=== PATIENT | male | born 1985 | race African-American/Black ===

== ENCOUNTER 2017-09-03 19:34 | Emergency (ER) | payer OTHER ==
[2017-09-03] MEDS ORDERED: LORAZEPAM 2 MG/ML 1 ML VIAL IM STA ×2 (19:57→20:22)
[2017-09-03] MEDS ORDERED: HALOPERIDOL LACTATE 5 MG/ML 1 ML VIAL IM STA (19:57)
[2017-09-03] MEDS ORDERED: HALOPERIDOL LACTATE 5 MG/ML 1 ML VIAL IV STA (20:22)
[2017-09-03 20:43] LABS: BASO % 0.5 %; BASO ABS # 0.05 K/uL (0-0.2); EOS % 4.6 %; EOS ABS # 0.45 K/uL (0-0.5); HEMOGLOBIN 14.3 g/dL (14.0-18.0); IG# 0.02 K/uL (0.00-0.02); LYMPH % 36.9 %; MEAN CELL VOLUME 88.8 fL (80-100); MEAN CORPUSCULAR HEMOGLOBIN 30.2 pg (25-34); MEAN PLATELET VOLUME 9.5 fL (7.4-10.4); MONO ABS # 0.88 K/uL (0.11-0.59); NEUT % 48.8 %; NEUT ABS # 4.76 K/uL (1.4-6.5); PLATELET COUNT 215 K/uL (130-400); RED CELL DISTRIBUTION WIDTH CV 12.3 % (11.5-14.5); RED CELL DISTRIBUTION WIDTH SD 39.4 fL (36.4-46.3); WHITE BLOOD COUNT 9.76 K/uL (4.8-10.8)
[2017-09-03 21:08] LABS: ALKALINE PHOSPHATASE 141 U/L (45-117); ALT/SGPT 32 U/L (12-78); AST/SGOT 18 U/L (15-37); BLOOD UREA NITROGEN 12 mg/dl (7-18); CALCIUM 8.5 mg/dl (8.5-10.1); CARBON DIOXIDE 24 mmol/L (21-32); CREATININE 1.08 mg/dl (0.60-1.40); GLUCOSE 115 mg/dl (70-99); POTASSIUM 3.7 mmol/L (3.5-5.1); SODIUM 133 mmol/L (136-145); TOTAL PROTEIN 7.6 gm/dl (6.4-8.2)
--- NOTE | 2017-09-03 21:23 | EMERGENCY ROOM VISIT NOTE ---
History Report prepared by Hillary: Tammy Chau Under the Supervision of: Dr. Juan Renteria M.D. First contact with patient: 19:47 Chief Complaint: MENTAL HEALTH EVALUATION Stated Complaint: MHID History of Present Illness The patient is a 32 year old male who presents to the Emergency Room with complaints of worsening agitation starting today. The patient's sister called the police over concerns of the patient's well-being. The patient reportedly has a history of schizophrenia and bipolar disorder. He has not been taking his medications. The patient reports that he is doing well. He is not having any pain. He is unsure why his sister brought him to the ED. He denies having any medical problems. He denies being on any medications. He reports he has been eating and drinking well. Source of History: patient, sibling Onset: today Position: other (mental health) Quality: other (agitation) Timing: worsening Note: Patient denies having any pain. Review of Systems See HPI for pertinent positives and negatives. A total of ten systems were reviewed and were otherwise negative. Past Medical & Surgical History of schizophrenia and bipolar disorder Family History No pertinent family history stated Social History Housing Status: lives with family Current/Historical Medications Unable to Obtain Active Prescriptions or Reported Meds Allergies Coded Allergies: No Known Allergies (Unverified , 09/03/17) Physical Exam Vital Signs Date Time Temp Pulse Resp B/P (MAP) Pulse Ox O2 Delivery O2 Flow Rate FiO2 09/03/17 20:35 78 18 124/61 97 Room Air Physical Exam GENERAL: Awake, alert, well-appearing, in no distress HENT: Normocephalic, atraumatic. Oropharynx unremarkable. EYES: Normal conjunctiva. Sclera non-icteric. NECK: Supple. No nuchal rigidity. RESPIRATORY: Clear to auscultation. No wheezes. Normal respiratory effort. CARDIAC: Normal rate. Normal rhythm. Extremities warm and well perfused. GI: Soft, non-distended. No tenderness to palpation. No rebound or guarding. No masses. RECTAL: Deferred. MUSCULOSKELETAL: Atraumatic. Chest examination reveals no tenderness. The back is symmetrical on inspection without obvious abnormality. There is no CVA tenderness to palpation. LOWER EXTREMITIES: Calves are equal size bilaterally and non-tender. No edema NEURO: Normal sensorium. No sensory or motor deficits noted. SKIN: Warm and dry. No rash or jaundice noted. PSYCH: Very tangential, intermittently agitated and answering questions, not clearly responding to external stimuli. Medical Decision & Procedures Laboratory Results 09/03/17 20:28 Red Blood Count 4.73, Mean Corpuscular Volume 88.8, Mean Corpuscular Hemoglobin 30.2, Mean Corpuscular Hemoglobin Concent 34.0, Mean Platelet Volume 9.5, Neutrophils (%) (Auto) 48.8, Lymphocytes (%) (Auto) 36.9, Monocytes (%) (Auto) 9.0, Eosinophils (%) (Auto) 4.6, Basophils (%) (Auto) 0.5, Neutrophils # (Auto) 4.76, Lymphocytes # (Auto) 3.60, Monocytes # (Auto) 0.88, Eosinophils # (Auto) 0.45, Basophils # (Auto) 0.05 09/03/17 20:28 Test 09/03/17 19:43 09/03/17 20:28 Urine Color YELLOW Urine Appearance CLEAR (CLEAR) Urine pH 6.5 (4.5-7.5) Urine Specific [place] 1.004 (1.000-1.030) Urine Protein NEG (NEG) Urine Glucose (UA) NEG (NEG) Urine Ketones NEG (NEG) Urine Occult Blood NEG (NEG) Urine Nitrite NEG (NEG) Urine Bilirubin NEG (NEG) Urine Urobilinogen NEG (NEG) Urine Leukocyte Esterase NEG (NEG) Urine Opiates Screen NEG (NEG) Urine Methadone, Qualitative NEG (NEG) Urine Barbiturates NEG (NEG) Urine Phencyclidine (PCP) Level NEG (NEG) Ur Amphetamine/Methamphetamine NEG (NEG) MDMA (Ecstasy) Screen NEG (NEG) Urine Benzodiazepines Screen NEG (NEG) Urine Cocaine Metabolite NEG (NEG) Urine Marijuana (THC) NEG (NEG) White Blood Count 9.76 K/uL (4.8-10.8) Red Blood Count 4.73 M/uL (4.7-6.1) Hemoglobin 14.3 g/dL (14.0-18.0) Hematocrit 42.0 % (42-52) Mean Corpuscular Volume 88.8 fL (80-100) Mean Corpuscular Hemoglobin 30.2 pg (25-34) Mean Corpuscular Hemoglobin Concent 34.0 g/dl (32-36) Platelet Count 215 K/uL (130-400) Mean Platelet Volume 9.5 fL (7.4-10.4) Neutrophils (%) (Auto) 48.8 % Lymphocytes (%) (Auto) 36.9 % Monocytes (%) (Auto) 9.0 % Eosinophils (%) (Auto) 4.6 % Basophils (%) (Auto) 0.5 % Neutrophils # (Auto) 4.76 K/uL (1.4-6.5) Lymphocytes # (Auto) 3.60 K/uL (1.2-3.4) Monocytes # (Auto) 0.88 K/uL (0.11-0.59) Eosinophils # (Auto) 0.45 K/uL (0-0.5) Basophils # (Auto) 0.05 K/uL (0-0.2) RDW Standard Deviation 39.4 fL (36.4-46.3) RDW Coefficient of Variation 12.3 % (11.5-14.5) Immature Granulocyte % (Auto) 0.2 % Immature Granulocyte # (Auto) 0.02 K/uL (0.00-0.02) Anion Gap 8.0 mmol/L (3-11) Estimated GFR () 104.7 Estimated GFR (Non- 90.3 BUN/Creatinine Ratio 10.9 (10-20) Calcium Level 8.5 mg/dl (8.5-10.1) Total Bilirubin 0.4 mg/dl (0.2-1) Direct Bilirubin 0.1 mg/dl (0-0.2) Aspartate Amino Transf (AST/SGOT) 18 U/L (15-37) Alanine Aminotransferase (ALT/SGPT) 32 U/L (12-78) Alkaline Phosphatase 141 U/L (45-117) Total Protein 7.6 gm/dl (6.4-8.2) Albumin 4.0 gm/dl (3.4-5.0) Thyroid Stimulating Hormone (TSH) 4.250 uIu/ml (0.300-4.500) Salicylates Level < 1.7 mg/dl (2.8-20) Acetaminophen Level < 2 ug/ml (10-30) Ethyl Alcohol mg/dL < 3.0 mg/dl (0-3) Laboratory results reviewed by me Medications Administered Medications (Trade) Dose Ordered Sig/Saundra Route Start Time Stop Time Status Last Admin Dose Admin Lorazepam (Ativan Inj) 2 mg NOW STAT IM 09/03/17 19:57 09/03/17 19:59 DC 09/03/17 19:57 2 MG Haloperidol Lactate (Haldol Inj) 5 mg NOW STAT IM 09/03/17 19:57 09/03/17 19:59 DC 09/03/17 19:57 5 MG Lorazepam (Ativan Inj) 2 mg NOW STAT IM 09/03/17 20:22 09/03/17 20:24 DC 09/03/17 20:22 2 MG Haloperidol Lactate (Haldol Inj) 5 mg NOW STAT IV 09/03/17 20:22 09/03/17 20:24 DC 09/03/17 20:22 5 MG ECG Per My Interpretation Indication: altered mental status Rate (beats per minute): 91 Rhythm: normal sinus Findings: other (normal axis, normal intervals, no ST elevation) Comparison ECG Date: no prior available ED Course 1951: The patient was evaluated in room A7. A complete history and physical exam was performed. 1956: Haldol Inj 5 mg IM, Ativan Inj 2 mg IM. 2021: Haldol Inj 5 mg IM, Ativan Inj 2 mg IM. 2025: I reevaluated the patient. 2203: I reevaluated the patient. 2227: I signed 302, bed search in progress. 2304: The patient was signed out to Dr. Rodriguez awaiting placement. Medical Decision Etiologies such as mood disorder, toxicologic, infection, hypoglycemia, electrolyte abnormalities, cardiac sources, intracerebral event, neurologic, as well as others were entertained. Patient presents after sister became concerned with the patient please brought here for evaluation reportedly to be schizophrenic and off his medications. Upon arrival here limited ability to conduct interview and exam due to patient agitation. Extremely tangential with flight of ideas. Talking about various comic book and movie scenarios including the Matrix, [employer] [place], [employer] Alida, and x-men. Patient intermittently responding to questions well at times stop talking only get hand gestures. Given the inability to perform full exam and for patient and staff safety he was given Ativan and Haldol. After several doses was able to perform exam screening lab work and EKG. Patient still acting psychotic with nonsensical statements. Medical clearance workup was completed including laboratory testing for thyroid dysfunction. No reported trauma and with his known psychiatric history do not believe that we need CT of his head at this time. Patient is obviously in a manic and acutely psychotic state and needs involuntary commitment. A 302 process will be started for inpatient psychiatric care. I believe he requires inpatient psychiatric care with involuntary commitment as he is acutely psychotic and unable to care for himself. 302 signed by myself at 1028pm. Drug screen is negative. Urine is negative. CBC unremarkable. CMP unremarkable. Medically cleared for inpatient psychiatric care. Awaiting placement with technical support assistant with psychiatric trimming caser here. Medication Reconcilliation Current Medication List: was personally reviewed by me Blood Pressure Screening Patient's blood pressure: Normal blood pressure Impression Primary Impression: Psychosis Additional Impressions: Manic behavior Involuntary commitment Scribe Attestation The scribe's documentation has been prepared under my direction and personally reviewed by me in its entirety. I confirm that the note above accurately reflects all work, treatment, procedures, and medical decision making performed by me. Departure Information Dispostion Still a Patient Prescriptions Unable to Obtain Active Prescriptions or Reported Meds Patient Instructions My [facility] Problem Qualifiers Primary Impression: Psychosis Psychosis type: unspecified psychosis type Qualified Codes: F29 - Unspecified psychosis not due to a substance or known physiological condition
--- NOTE | 2017-09-04 05:20 | EMERGENCY ROOM VISIT NOTE ---
ED Visit Note First contact with patient: 01:26 This case was signed out to me at change of shift awaiting bed placement. 302 paperwork has been signed. Bed search has been suspended as there are no beds available locally. The patient rested throughout the night. The bed search will resume this morning. The case will be signed out to Dr. Quinn at change of shift.
[2017-09-04] MEDS ORDERED: HALOPERIDOL LACTATE 5 MG/ML 1 ML VIAL IM STA (10:50)
[2017-09-04] MEDS ORDERED: LORAZEPAM 2 MG/ML 1 ML VIAL IM STA (10:50)
--- NOTE | 2017-09-04 14:20 | EMERGENCY ROOM VISIT NOTE ---
ED Visit Note Still awaiting bed assignment. Became a little agitated during the day and was pacing the room thinking he is [employer] Alida. He was given Haldol 5mg IM and Ativan 2mg IM which seemed to help. Signed out to Dr. Wang at 2:30PM.
--- NOTE | 2017-09-04 15:29 | EMERGENCY ROOM VISIT NOTE ---
ED Visit Note First contact with patient: 14:28 Pt signed out to me by Dr. Quinn. Patient here as a 302 in bed search ongoing. 2200: Pt well appearing. No issues during my shift. Pt signed out to Dr. Espinosa. Pt still awaiting bed search/placement.
--- NOTE | 2017-09-05 03:26 | EMERGENCY ROOM VISIT NOTE ---
ED Visit Note First contact with patient: 23:49 The patient was taken in signout from Dr. babcock at the change of shift. Please see that note for details. The patient was pending psychiatric placement on a 302 warrant. Patient was evaluated by [facility] mental health. Zyprexa was recommended. I did evaluate the patient. He noted he had poor results and significant weight gain with Zyprexa in the past and declined taking this medication. He was calm and cooperative. Given the current situation and probable admission to psychiatry this morning, Zyprexa was held. [facility] was notified. His case was signed out to Dr. Jacobson pending psychiatric placement.
--- NOTE | 2017-09-05 06:05 | Psych Management Progress Note ---
Psychiatry Miscellaneous Date of Service: Sep 05, 2017. Contacted overnight (0100) by psychiatric liaison nurse after ER requested case review and medication recommendations. Patient with h/o bipolar disorder, previously on olanzapine 20mg but noncompliant, who presented with [facility] on a 302 involuntary commitment. Periods of agitation in ER, trying to leave, has received 15mg of haloperidol and 6mg of lorazepam so far in the ED. Labs unremarkable, QTc 428. Recommended resuming olanzapine 10mg HS while bed search continues. May also use Haldol 10mg PO or IM as needed. Will need inpatient treatment. If remains in ER, recommend obtaining most recent records for additional information.
--- NOTE | 2017-09-05 07:26 | EMERGENCY ROOM VISIT NOTE ---
ED Visit Note First contact with patient: 03:30 32 yr old male currently here on 302 warrant for mental health. Awaiting placement. No issues overnight. Signed out to Dr Quinn awaiting placement.
[2017-09-05] MEDS ORDERED: DiphenhydrAMINE HCL 50 MG/ML VIAL IM STA (10:11)
[2017-09-05 13:31] VITALS: BP 151/90; PULSE 90; O2SAT 99
== END 2017-09-05 13:43 ==
LOC: C.EDA 19:37
DX: F30.2 Manic episode, severe with psychotic symptoms (principal); Z91.19 Patient's noncompliance with other medical treatment and regimen